=== PATIENT | female | born 1970 | race Caucasian/White ===

== ENCOUNTER 2017-07-06 13:06 | Emergency (ER) | payer OTHER ==
[2017-07-06 13:15] VITALS: RESP 18; O2SAT 100
--- NOTE | 2017-07-06 14:48 | ED PDOC ---
HPI: CCC, URI, Sore Throat Time Seen by Provider: 07/06/17 13:35 Chief Complaint (Nursing): Cough, Cold, Congestion Chief Complaint (Provider): Fever and cough History Per: Patient History/Exam Limitations: no limitations (Urdu tax advisor used: Jerrica Mckenzie #[id number] ) Onset/Duration Of Symptoms: Days (x4) Current Symptoms Are (Timing): Still Present Additional Complaint(s): Terri Walsh is a 47 year old female with a past medical history of Multiple Sclerosis presenting to the ED for an evaluation of a 4 day history of tactile fever that became associated with a dry cough, sore throat, and nasal congestion yesterday. She notes she has also been getting intermittent bloody noses. She states she is currently visiting here from [place], and has been taking Clindamycin and Ciprofloxacin for the past 4 days that she received from her physician in [place]. Patient notes she is on receiving immunotherapy, Dimethyl fumarate, for 20-30 years for her MS. She has been taking Aspirin for her current symptoms, but has not taken any medications today. According to the patient and her , they called her PMD and neurologist in [place], who advised they come to the ED for a PCN based antibiotic prescription. PMD: Non CPH Provider Past Medical History Reviewed: Historical Data, Nursing Documentation, Vital Signs Vital Signs: Last Vital Signs Temp 98.2 F 07/06/17 18:35 Pulse 75 07/06/17 18:35 Resp 18 07/06/17 18:35 BP 116/70 07/06/17 18:35 Pulse Ox 100 07/06/17 18:43 - Medical History PMH: Multiple Sclerosis - Family History Family History: States: Unknown Family Hx - Social History Current smoker - smoking cessation education provided: No Ex-Smoker (has not smoked in the last 12 months): No Alcohol: None Drugs: Denies - Immunization History Hx Tetanus Toxoid Vaccination: No Hx Influenza Vaccination: No Hx Pneumococcal Vaccination: No - Home Medications Home Medications: Ambulatory Orders Medication Instructions Recorded Acetaminophen [Tylenol 325mg tab] 975 mg PO TID #20 tab 07/06/17 Amoxicillin/Clavulanate [Augmentin 1 tab PO BID 7 Days #14 tab 07/06/17 875 MG-125 MG] Fluticasone Nasal [Flonase] 1 spr NS DAILY PRN 7 Days #1 spr 07/06/17 - Allergies Allergies/Adverse Reactions: Allergies Allergy/AdvReac Type Severity Reaction Status Date / Time No Known Allergies Allergy Verified 07/06/17 13:09 Review of Systems ROS Statement: Except As Marked, All Systems Reviewed And Found Negative Constitutional: Positive for: Fever (tactile) ENT: Positive for: Nose Congestion (and bloody nose), Throat Pain (sore throat) Respiratory: Positive for: Cough, Shortness of Breath (difficulty breathing) Physical Exam - Reviewed Nursing Documentation Reviewed: Yes Vital Signs Reviewed: Yes - Physical Exam Appears: Positive for: Non-toxic, No Acute Distress Head Exam: Positive for: ATRAUMATIC, NORMOCEPHALIC Skin: Positive for: Normal Color, Warm (a febrile), Dry ENT: Positive for: Nasal Congestion, Pharyngeal Erythema. Negative for: Tonsillar Exudate, Tonsillar Swelling Neck: Positive for: Normal Cardiovascular/Chest: Positive for: Regular Rate, Rhythm, Chest Non Tender. Negative for: Murmur Respiratory: Positive for: Normal Breath Sounds (clear to auscultation bilaterally). Negative for: Decreased Breath Sounds, Accessory Muscle Use, Crackles, Rales, Rhonchi, Stridor, Wheezing, Respiratory Distress Neurologic/Psych: Positive for: Alert, Oriented (x3). Negative for: Motor/ Sensory Deficits - Laboratory Results Result Diagrams: 07/06/17 16:00 07/06/17 16:20 - ECG O2 Sat by Pulse Oximetry: 100 (RA) Pulse Ox Interpretation: Normal - Radiology X-Ray: Interpreted by Or X-Ray Interpretation: No Acute Disease Medical Decision Making Medical Decision Making: Time: 13:35 Impression: Tactile fever Plan: * Throat Culture * Influenza A B * Rapid Strep group A Antigen * Tylenol 650 mg PO * [RAD] Chest Two Views PA/LAT * Reevaluation Labs and CXR reviewed. On reevaluation, patient reports improvement of symptoms. Patient's case discussed with Dr. Contreras, ED attending, who agrees with disposition home on Augmentin. Patient advised to f/u with her personal PMD upon arrival home, and to take medications as prescribed. She was advised to return for any worsening or change in symptoms. Scribe Attestation: Documented by Alisha Grimm, acting as a scribe for Jackie Rodas PA-C. Provider Scribe Attestation: All medical record entries made by the Scribe were at my direction and personally dictated by me. I have reviewed the chart and agree that the record accurately reflects my personal performance of the history, physical exam, medical decision making, and the department course for this patient. I have also personally directed, reviewed, and agree with the discharge instructions and disposition. Disposition - Clinical Impression Clinical Impression: Cough, Nasal congestion, Pharyngitis - Patient ED Disposition Is Patient to be Admitted: No Discussed With Dr.: Juvenal Contreras III Counseled Patient/Family Regarding: Studies Performed, Diagnosis, Need For Followup, Rx Given - Disposition Referrals: [facility] [Outside] Disposition: Routine/Home Disposition Time: 17:52 Condition: FAIR Additional Instructions: TAKE MEDICATION PRESCRIBED. DRINK PLENTY OF FLUID. REST. F/U WITH PMD UPON ARRIVAL HOME, AND RETURN TO THE ED WITH ANY WORSENING OR CHANGE IN SYMPTOMS. Prescriptions: Acetaminophen [Tylenol 325mg tab] 975 mg PO TID #20 tab Amoxicillin/Clavulanate [Augmentin 875 MG-125 MG] 1 tab PO BID 7 Days #14 tab Fluticasone Nasal [Flonase] 1 spr NS DAILY PRN 7 Days #1 spr PRN Reason: Allergy Symptoms Instructions: Upper Respiratory Infection (ED) Forms: [employer] ([place]) Print Language: LAO
[2017-07-06 16:11] LABS: BASO % 0.3 % (0.0-2.0); HEMATOCRIT 42.1 % (34.0-47.0); LYMPH # 1.2 K/uL (1.0-4.3); LYMPH % 8.2 % (20.0-40.0); MEAN CELL VOLUME 94.8 fl (81.0-99.0); MEAN CORPUSCULAR HEMOGLOBIN 32.3 pg (27.0-31.0); MEAN PLATELET VOLUME 9.4 fl (7.2-11.7); MONO # 1.1 K/uL (0.0-0.8); MONO % 7.2 % (0.0-10.0); NEUT # 12.7 K/uL (1.8-7.0); NEUT % 84.3 % (50.0-75.0); NRBC % 0.1 % (0.0-0.0); PLATELET COUNT 199 K/uL (130-400); RED CELL DISTRIBUTION WIDTH 13.4 % (11.5-14.5); WHITE BLOOD COUNT 15.1 K/uL (4.8-10.8)
[2017-07-06 16:18] LABS: RBC URINE 1 /hpf (0-3); URINE BACTERIA RARE (<OCC); URINE BILIRUBIN NEGATIVE (NEGATIVE); URINE BLOOD NEGATIVE (NEGATIVE); URINE COLOR YELLOW (YELLOW); URINE GLUCOSE (UA) NEG (Normal); URINE KETONE NEGATIVE (NEGATIVE); URINE LEUKOCYTE ESTERASE NEG Leu/uL (Negative); URINE PROTEIN NEGATIVE (NEGATIVE); URINE UROBILINOGEN 0.2-1.0 mg/dL (0.2-1.0); WBC URINE 1 /hpf (0-5)
[2017-07-06 16:19] LABS: ALB/GLOB RATIO 1.5 (1.0-2.1); ALKALINE PHOSPHATASE 59 U/L (38-126); ALT/SGPT 26 U/L (9-52); AST/SGOT 18 U/L (14-36); BILIRUBIN,TOTAL 0.6 mg/dl (0.2-1.3); BLOOD UREA NITROGEN 5 mg/dl (7-17); CARBON DIOXIDE 27 mmol/L (22-30); CHLORIDE 100 mmol/L (98-107); GFR AFRICAN-AMERICAN > 60; GLUCOSE,RANDOM 94 mg/dL (65-105); POTASSIUM 3.8 MMOL/L (3.6-5.0); SODIUM 144 mmol/l (132-148); TOTAL PROTEIN 8.2 G/DL (6.3-8.2)
--- NOTE | 2017-07-06 16:37 | RAD ---
HISTORY: COUGH COMPARISON: No prior. TECHNIQUE: Chest PA and lateral FINDINGS: LUNGS: No active pulmonary disease. PLEURA: No significant pleural effusion identified. No pneumothorax apparent. CARDIOVASCULAR: Normal. OSSEOUS STRUCTURES: No significant abnormalities. VISUALIZED UPPER ABDOMEN: Normal. OTHER FINDINGS: None. IMPRESSION: No acute cardiopulmonary disease appreciated.
[2017-07-06 16:49] VITALS: BP 116/70; PULSE 75; TEMP 98.2
[2017-07-06] MEDS ORDERED: Sodium Chloride 0.9% 1,000 ML IV SCH (17:15)
[2017-07-06] MEDS ORDERED: Amoxicillin-Clav 875-125 mg Tab PO STA (17:50)
[2017-07-06] MEDS ORDERED: Amoxicillin-Clav 875-125 mg Tab PO ONE (17:56)
[2017-07-06 18:29] LABS: LARGE PLATELETS PRESENT; NEUTROPHIL 81 % (42-75); TOTAL CELLS COUNTED 100
== END 2017-07-06 18:36 | disposition short-term general hospital (02) ==
LOC: H.ER 13:06
DX: J06.9 Acute upper respiratory infection, unspecified (principal)
CPT/HCPCS: 71020; 80053; 81003; 85025; 87040; 87070; 87086; 87430; 87804; 99282; J7040

== ENCOUNTER 2017-07-08 21:49 | Emergency (ER) | payer OTHER ==
[2017-07-08 21:59] VITALS: BP 136/60; PULSE 77; RESP 18; TEMP 97.5; O2SAT 98
--- NOTE | 2017-07-08 22:25 | ED PDOC ---
HPI: General Adult Time Seen by Provider: 07/08/17 22:15 Chief Complaint (Nursing): Flu-like Symptoms Chief Complaint (Provider): COUGH/FEVER History Per: Patient (47 Y/O FEMALE H/O MS ON IMMUNOTHERAPY VISITING FROM [facility] HERE FOR NOTE TO CLEAR FOR TRAVEL. PATIENT WAS SEEN 2 DAYS AGO AND WRITTENT AUGMENTIN EMPIRICALLY. STATES SHE FEELS IMPROVED BUT NOTES FEVERS AT TIMES. NO VOMITING/DIARRHEA/ETC.) Past Medical History Reviewed: Historical Data, Nursing Documentation, Vital Signs Vital Signs: Last Vital Signs Temp 97.5 F L 07/08/17 21:51 Pulse 77 07/08/17 21:51 Resp 18 07/08/17 21:51 BP 136/60 07/08/17 21:51 Pulse Ox 98 07/08/17 21:51 - Medical History PMH: Multiple Sclerosis - Family History Family History: States: Unknown Family Hx - Immunization History Hx Tetanus Toxoid Vaccination: No Hx Influenza Vaccination: No Hx Pneumococcal Vaccination: No - Home Medications Home Medications: Ambulatory Orders Medication Instructions Recorded Acetaminophen [Tylenol 325mg tab] 975 mg PO TID #20 tab 07/06/17 Amoxicillin/Clavulanate [Augmentin 1 tab PO BID 7 Days #14 tab 07/06/17 875 MG-125 MG] Fluticasone Nasal [Flonase] 1 spr NS DAILY PRN 7 Days #1 spr 07/06/17 - Allergies Allergies/Adverse Reactions: Allergies Allergy/AdvReac Type Severity Reaction Status Date / Time No Known Allergies Allergy Verified 07/06/17 13:09 Review of Systems ROS Statement: Except As Marked, All Systems Reviewed And Found Negative Physical Exam - Reviewed Nursing Documentation Reviewed: Yes Vital Signs Reviewed: Yes - Physical Exam Appears: Positive for: Well, Non-toxic, No Acute Distress Head Exam: Positive for: ATRAUMATIC, NORMAL INSPECTION, NORMOCEPHALIC Skin: Positive for: Normal Color, Warm, DRY Eye Exam: Positive for: EOMI, Normal appearance, PERRL ENT: Positive for: Normal ENT Inspection Neck: Positive for: Normal, Painless ROM Cardiovascular/Chest: Positive for: Regular Rate, Rhythm Respiratory: Positive for: CNT, Normal Breath Sounds Gastrointestinal/Abdominal: Positive for: Normal Exam, Bowel Sounds, Soft Back: Positive for: Normal Inspection Extremity: Positive for: Normal ROM Neurologic/Psych: Positive for: Alert, Oriented - ECG O2 Sat by Pulse Oximetry: 98 - Progress ED Course And Treament: BC RESULTS REVIEWE NO GROWTH IN 48 HOURS URINE CX NO GROWTH CXR: NO INFILRATE Disposition - Clinical Impression Clinical Impression: Febrile illness - Patient ED Disposition Is Patient to be Admitted: No - Disposition Disposition: Routine/Home Disposition Time: 22:25 Condition: FAIR Instructions: Fever in Adults (ED) Forms: [facility] (Yakut), [facility] ED School/Work Excuse
== END 2017-07-08 22:38 | disposition home or self-care (01) ==
LOC: H.ER 21:49
DX: R50.9 Fever, unspecified (principal); R05 Cough